=== PATIENT | male | born 1945 | race Caucasian/White ===

== ENCOUNTER 2021-03-12 09:52 | Inpatient (IN) | payer MEDICARE, OTHER ==
[2021-03-12] MEDS ORDERED: Acetaminophen 500 MG TAB PO PRN (12:40)
[2021-03-12] MEDS ORDERED: Ondansetron ODT 4 MG TAB PO PRN (12:42)
[2021-03-12] MEDS ORDERED: Dextrose 50% Abboject 50 ML SYRINGE SLOW IVP PRN (12:42)
[2021-03-12] MEDS ORDERED: Senokot S 8.6-50 MG TAB PO PRN (12:42)
[2021-03-12] MEDS ORDERED: HumaLOG 300 UNITS/3 ML VIAL SC PRN (12:42)
[2021-03-12] MEDS ORDERED: guaiFENesin/Codeine 200 mg/20 mg 10 ml Cup PO PRN (13:12)
[2021-03-12] MEDS ORDERED: Dextrose 5% in Water 1,000 ML IV PRN (13:30)
[2021-03-12] MEDS: HYDROcodone/Acetaminophen 10/325 mg Tablet PO PRN ×2 (14:00→20:22)
[2021-03-12 15:00] LABS: #Basophils 0.1 thou/uL (0.0-0.2); #Eosinphils 0.3 thou/uL (0.0-0.7); #Lymphocytes 2.7 thou/uL (1.20-3.40); #Monocytes 0.9 thou/uL (0.11-0.59); #Neutrophils 9.1 thou/uL (1.40-6.50); %Eosinophils 2.4 % (0.0-10.0); %Lymphocytes 20.8 % (21.0-51.0); %Monocytes 6.5 % (0.0-10.0); %Neutrophils 69.3 % (42.0-75.0); Hemoglobin 11.4 g/dL (14.0-18.0); Mean Corpuscular HGB CONC 33.2 g/dL (32.0-36.0); Mean Corpuscular Volume 90.2 fL (78.0-98.0); Mean Platelet Volume 6.6 fL (7.4-10.4); Platelet Count 577 thou/uL (130-400); RBC Distribution Width 12.3 % (11.5-14.5); Red Blood Cell (RBC) Count 3.79 mill/uL (4.70-6.10); White Blood Cell (WBC) Count 13.1 thou/uL (4.8-10.8)
[2021-03-12 15:16] LABS: ALT (SGPT) 33 U/L (8-55); AST (SGOT) 25 U/L (5-34); Albumin 3.4 g/dL (3.4-4.8); Alkaline Phosphatase 48 U/L (40-110); Anion Gap 13 mmol/L (10-20); BUN (Urea Nitrogen) 7 mg/dL (8.4-25.7); Bilirubin, Total 0.8 mg/dL (0.2-1.2); Calc. Creatinine Clearance 165 mL/min (70-130); Calcium 8.6 mg/dL (7.8-10.44); Carbon Dioxide 22 mmol/L (23-31); Chloride 108 mmol/L (98-107); Globulin 3.9 g/dL (2.4-3.5); Glucose 146 mg/dL (83-110); Potassium 3.2 mmol/L (3.5-5.1); Protein, Total 7.3 g/dL (5.8-8.1); Sodium 140 mmol/L (136-145)
[2021-03-12] MEDS ORDERED: Potassium Chloride 20 MEQ TAB PO SCH (16:15)
[2021-03-12 17:07] LABS: Bilirubin Negative (Negative); Blood, Urine Trace (Negative); Clarity Clear (Clear); Glucose, Urine (Dipstick) Negative (Negative); Ketone, Urine Negative (Negative); Leukocyte Negative (Negative); Nitrite Negative (Negative); Protein, Urine (Dipstick) Negative (Neg-Trace); Specific Gravity, Urine 1.025 (1.005-1.030); Urobilinogen 0.2 mg/dL (Less than 2)
[2021-03-12 17:10] LABS: Calcium Oxalate Crystals 1+ HPF (None Seen); Squamous Epithelial 0-3 HPF (0-3); WBC/HPF 0-3 HPF (0-3)
[2021-03-12] MEDS: Lantus 1000 UNITS/10 ML VIAL SC SCH (20:19)
[2021-03-12] MEDS: Enoxaparin Sodium 40 MG/0.4 ML SYRINGE SC SCH (20:19)
[2021-03-12] MEDS: Gabapentin 300 MG CAP PO SCH (20:20)
[2021-03-12] MEDS: Alogliptin 25 MG TAB PO SCH (20:21)
[2021-03-12] MEDS: Docusate 100 MG CAP PO SCH (20:22)
[2021-03-12] MEDS: Famotidine 20 MG TAB PO SCH (20:22)
[2021-03-12] MEDS: Amitriptyline HCl 10 MG TAB PO SCH (20:22)
[2021-03-12] MEDS: Aspirin 81 mg Enteric Coated Tablet PO SCH (20:22)
[2021-03-12] MEDS: Lisinopril 10 MG TAB PO SCH (20:22)
[2021-03-12] MEDS: Amoxicillin/Potassium Clav 875 MG TAB PO SCH (20:24)
[2021-03-13] MEDS: HYDROcodone/Acetaminophen 10/325 mg Tablet PO PRN ×3 (05:41→18:09)
[2021-03-13 06:35] LABS: Anion Gap 14 mmol/L (10-20); BUN (Urea Nitrogen) 7 mg/dL (8.4-25.7); Calc. Creatinine Clearance 170 mL/min (70-130); Calcium 8.6 mg/dL (7.8-10.44); Carbon Dioxide 21 mmol/L (23-31); Chloride 109 mmol/L (98-107); Glucose 139 mg/dL (83-110); Potassium 3.5 mmol/L (3.5-5.1); Sodium 140 mmol/L (136-145)
[2021-03-13 07:08] LABS: #Basophils 0.1 thou/uL (0.0-0.2); #Eosinphils 0.3 thou/uL (0.0-0.7); #Lymphocytes 2.6 thou/uL (1.20-3.40); #Monocytes 0.8 thou/uL (0.11-0.59); #Neutrophils 7.3 thou/uL (1.40-6.50); %Eosinophils 2.6 % (0.0-10.0); %Lymphocytes 23.8 % (21.0-51.0); %Monocytes 6.9 % (0.0-10.0); %Neutrophils 65.6 % (42.0-75.0); Mean Corpuscular HGB CONC 32.9 g/dL (32.0-36.0); Mean Corpuscular Hemoglobin 29.9 pg (27.0-31.0); Mean Corpuscular Volume 90.9 fL (78.0-98.0); Mean Platelet Volume 6.6 fL (7.4-10.4); Platelet Count 566 thou/uL (130-400); RBC Distribution Width 12.4 % (11.5-14.5); Red Blood Cell (RBC) Count 4.02 mill/uL (4.70-6.10); White Blood Cell (WBC) Count 11.1 thou/uL (4.8-10.8)
[2021-03-13] MEDS: Famotidine 20 MG TAB PO SCH ×2 (08:22→20:34)
[2021-03-13] MEDS: Amoxicillin/Potassium Clav 875 MG TAB PO SCH ×2 (08:22→20:34)
[2021-03-13] MEDS: Docusate 100 MG CAP PO SCH ×2 (08:22→20:36)
[2021-03-13] MEDS: Gabapentin 300 MG CAP PO SCH ×2 (08:22→20:34)
[2021-03-13] MEDS: HumaLOG 300 UNITS/3 ML VIAL SC PRN (12:00)
[2021-03-13 15:21] LABS: SARS-CoV-2 NAA Rapid Test Not Detected (NotDetected)
[2021-03-13] MEDS: Alogliptin 25 MG TAB PO SCH (20:34)
[2021-03-13] MEDS: Enoxaparin Sodium 40 MG/0.4 ML SYRINGE SC SCH (20:34)
[2021-03-13] MEDS: Amitriptyline HCl 10 MG TAB PO SCH (20:36)
[2021-03-13] MEDS: Aspirin 81 mg Enteric Coated Tablet PO SCH (20:36)
[2021-03-13] MEDS: Lisinopril 10 MG TAB PO SCH (20:36)
[2021-03-13] MEDS: Atorvastatin Calcium 10 MG TAB PO SCH (20:36)
[2021-03-13] MEDS: Lantus 1000 UNITS/10 ML VIAL SC SCH (20:37)
[2021-03-14] MEDS: HYDROcodone/Acetaminophen 10/325 mg Tablet PO PRN ×3 (07:36→20:28)
[2021-03-14] MEDS: Gabapentin 300 MG CAP PO SCH ×2 (09:14→20:30)
[2021-03-14] MEDS: Amoxicillin/Potassium Clav 875 MG TAB PO SCH ×2 (09:14→20:30)
[2021-03-14] MEDS: Famotidine 20 MG TAB PO SCH ×2 (09:15→20:30)
[2021-03-14] MEDS: Docusate 100 MG CAP PO SCH ×2 (09:16→20:30)
[2021-03-14] MEDS ORDERED: HYDROcodone/Acetaminophen 10/325 mg Tablet PO SCH (10:15)
[2021-03-14] MEDS: Atorvastatin Calcium 10 MG TAB PO SCH (20:28)
[2021-03-14] MEDS: Amitriptyline HCl 10 MG TAB PO SCH (20:28)
[2021-03-14] MEDS: Aspirin 81 mg Enteric Coated Tablet PO SCH (20:30)
[2021-03-14] MEDS: Enoxaparin Sodium 40 MG/0.4 ML SYRINGE SC SCH (20:30)
[2021-03-14] MEDS: Lisinopril 10 MG TAB PO SCH (20:30)
[2021-03-14] MEDS: Lantus 1000 UNITS/10 ML VIAL SC SCH (20:31)
[2021-03-14] MEDS: Alogliptin 25 MG TAB PO SCH (20:31)
[2021-03-15 07:18] LABS: #Basophils 0.1 thou/uL (0.0-0.2); #Eosinphils 0.4 thou/uL (0.0-0.7); #Lymphocytes 2.4 thou/uL (1.20-3.40); #Monocytes 0.7 thou/uL (0.11-0.59); #Neutrophils 5.4 thou/uL (1.40-6.50); %Basophils 1.2 % (0.0-1.0); %Monocytes 7.4 % (0.0-10.0); %Neutrophils 60.3 % (42.0-75.0); Hemoglobin 11.4 g/dL (14.0-18.0); Mean Corpuscular HGB CONC 32.7 g/dL (32.0-36.0); Mean Corpuscular Hemoglobin 29.8 pg (27.0-31.0); Mean Corpuscular Volume 91.1 fL (78.0-98.0); Mean Platelet Volume 6.6 fL (7.4-10.4); Platelet Count 562 thou/uL (130-400); RBC Distribution Width 12.4 % (11.5-14.5); Red Blood Cell (RBC) Count 3.82 mill/uL (4.70-6.10)
[2021-03-15 07:22] LABS: Anion Gap 15 mmol/L (10-20); BUN (Urea Nitrogen) 9 mg/dL (8.4-25.7); Calc. Creatinine Clearance 165 mL/min (70-130); Calcium 8.6 mg/dL (7.8-10.44); Carbon Dioxide 21 mmol/L (23-31); Chloride 107 mmol/L (98-107); Glucose 168 mg/dL (83-110); Potassium 3.5 mmol/L (3.5-5.1); Sodium 139 mmol/L (136-145)
[2021-03-15] MEDS: Amoxicillin/Potassium Clav 875 MG TAB PO SCH ×2 (08:02→20:51)
[2021-03-15] MEDS: Docusate 100 MG CAP PO SCH ×2 (08:02→20:53)
[2021-03-15] MEDS: Famotidine 20 MG TAB PO SCH ×2 (08:02→20:53)
[2021-03-15] MEDS: Gabapentin 300 MG CAP PO SCH ×2 (08:03→20:51)
[2021-03-15] MEDS: HYDROcodone/Acetaminophen 10/325 mg Tablet PO PRN ×3 (08:04→20:52)
[2021-03-15] MEDS: HumaLOG 300 UNITS/3 ML VIAL SC PRN ×2 (12:36→18:02)
[2021-03-15] MEDS ORDERED: Ondansetron ODT 4 MG TAB SL PRN (13:15)
[2021-03-15] MEDS: Alogliptin 25 MG TAB PO SCH (20:52)
[2021-03-15] MEDS: Amitriptyline HCl 10 MG TAB PO SCH (20:52)
[2021-03-15] MEDS: Atorvastatin Calcium 10 MG TAB PO SCH (20:52)
[2021-03-15] MEDS: Lisinopril 10 MG TAB PO SCH (20:53)
[2021-03-15] MEDS: Lantus 1000 UNITS/10 ML VIAL SC SCH (20:53)
[2021-03-15] MEDS: Aspirin 81 mg Enteric Coated Tablet PO SCH (20:53)
[2021-03-15] MEDS: Enoxaparin Sodium 40 MG/0.4 ML SYRINGE SC SCH (20:53)
[2021-03-16 06:29] VITALS: BMI 36.2
[2021-03-16 06:45] LABS: #Basophils 0.1 thou/uL (0.0-0.2); #Eosinphils 0.4 thou/uL (0.0-0.7); #Lymphocytes 2.9 thou/uL (1.20-3.40); #Monocytes 0.8 thou/uL (0.11-0.59); #Neutrophils 7.1 thou/uL (1.40-6.50); %Eosinophils 3.6 % (0.0-10.0); %Lymphocytes 25.7 % (21.0-51.0); %Monocytes 7.4 % (0.0-10.0); %Neutrophils 62.3 % (42.0-75.0); Hemoglobin 11.6 g/dL (14.0-18.0); Mean Corpuscular HGB CONC 32.7 g/dL (32.0-36.0); Mean Corpuscular Hemoglobin 29.4 pg (27.0-31.0); Mean Corpuscular Volume 89.8 fL (78.0-98.0); Mean Platelet Volume 6.9 fL (7.4-10.4); Platelet Count 569 thou/uL (130-400); RBC Distribution Width 12.6 % (11.5-14.5); Red Blood Cell (RBC) Count 3.95 mill/uL (4.70-6.10); White Blood Cell (WBC) Count 11.4 thou/uL (4.8-10.8)
[2021-03-16 06:55] LABS: Anion Gap 13 mmol/L (10-20); BUN (Urea Nitrogen) 10 mg/dL (8.4-25.7); Calc. Creatinine Clearance 167 mL/min (70-130); Calcium 8.7 mg/dL (7.8-10.44); Carbon Dioxide 22 mmol/L (23-31); Chloride 109 mmol/L (98-107); Glucose 166 mg/dL (83-110); Potassium 3.5 mmol/L (3.5-5.1); Sodium 140 mmol/L (136-145)
[2021-03-16 07:47] VITALS: BP 131/61; TEMP 98.7
== END 2021-03-16 12:39 | disposition short-term general hospital (02) | DRG 948 ==
LOC: NAV ACUTE 09:52
PROVIDERS: ADMIT Family Medicine; ATTEND Family Medicine
DX: R53.81 Other malaise (principal); E11.42 Type 2 diabetes mellitus with diabetic polyneuropathy; I10 Essential (primary) hypertension; E78.5 Hyperlipidemia, unspecified; F32.9 Major depressive disorder, single episode, unspecified; M19.90 Unspecified osteoarthritis, unspecified site; E87.6 Hypokalemia; G47.33 Obstructive sleep apnea (adult) (pediatric); Z20.822 Contact with and (suspected) exposure to COVID-19; Z89.421 Acquired absence of other right toe(s); Z89.411 Acquired absence of right great toe; Z90.49 Acquired absence of other specified parts of digestive tract
CPT/HCPCS: 36416; 80048; 80053; 81001; 82553; 84484; 85025; 87040; 87086; 87804; 97602; 36415-59; J1650; J1815; U0002

== ENCOUNTER 2021-03-16 08:13 | Emergency (ER) | payer MEDICARE, OTHER ==
[2021-03-16] MEDS ORDERED: Aspirin Chewable 81 MG TAB ONE (08:35)
[2021-03-16] MEDS ORDERED: HYDROcodone/Acetaminophen 10/325 mg Tablet ONE (08:35)
[2021-03-16 08:39] LABS: #Basophils 0.1 thou/uL (0.0-0.2); #Eosinphils 0.4 thou/uL (0.0-0.7); #Lymphocytes 2.9 thou/uL (1.20-3.40); #Monocytes 0.8 thou/uL (0.11-0.59); #Neutrophils 8.1 thou/uL (1.40-6.50); %Lymphocytes 23.6 % (21.0-51.0); %Monocytes 6.5 % (0.0-10.0); %Neutrophils 65.9 % (42.0-75.0); Mean Corpuscular HGB CONC 32.2 g/dL (32.0-36.0); Mean Corpuscular Hemoglobin 29.1 pg (27.0-31.0); Mean Corpuscular Volume 90.5 fL (78.0-98.0); Mean Platelet Volume 6.8 fL (7.4-10.4); Platelet Count 589 thou/uL (130-400); RBC Distribution Width 12.8 % (11.5-14.5); Red Blood Cell (RBC) Count 4.12 mill/uL (4.70-6.10); White Blood Cell (WBC) Count 12.3 thou/uL (4.8-10.8)
[2021-03-16 08:54] LABS: ALT (SGPT) 30 U/L (8-55); AST (SGOT) 25 U/L (5-34); Albumin 3.6 g/dL (3.4-4.8); Alkaline Phosphatase 46 U/L (40-110); Anion Gap 13 mmol/L (10-20); BUN (Urea Nitrogen) 10 mg/dL (8.4-25.7); Bilirubin, Total 0.7 mg/dL (0.2-1.2); Calc. Creatinine Clearance 0 mL/min (70-130); Calcium 8.9 mg/dL (7.8-10.44); Carbon Dioxide 24 mmol/L (23-31); Chloride 106 mmol/L (98-107); Globulin 4.3 g/dL (2.4-3.5); Glucose 178 mg/dL (83-110); Potassium 3.6 mmol/L (3.5-5.1); Protein, Total 7.9 g/dL (5.8-8.1); Sodium 139 mmol/L (136-145)
[2021-03-16] MEDS ORDERED: Iopamidol 370 76% 100 ML VIAL ONE (09:00)
== END 2021-03-16 11:53 | disposition short-term general hospital (02) ==
LOC: NAV ERS 08:13
DX: I21.4 Non-ST elevation (NSTEMI) myocardial infarction (principal); R94.31 Abnormal electrocardiogram [ECG] [EKG]; I10 Essential (primary) hypertension; E11.40 Type 2 diabetes mellitus with diabetic neuropathy, unspecified; Z79.899 Other long term (current) drug therapy
CPT/HCPCS: 36416; 71045; 71275; 85379; 93005; 94760; Q9967

== ENCOUNTER 2021-03-19 21:23 | Inpatient (IN) | payer MEDICARE, OTHER ==
[2021-03-19] MEDS ORDERED: Acetaminophen 500 MG TAB PO PRN (22:16)
[2021-03-19] MEDS ORDERED: HYDROcodone/Acetaminophen 5/325 mg Tablet PO PRN (22:20)
[2021-03-19] MEDS ORDERED: Ondansetron ODT 4 MG TAB PO PRN (22:20)
[2021-03-19] MEDS ORDERED: Lisinopril 10 MG TAB PO SCH (22:30)
[2021-03-19] MEDS ORDERED: Alogliptin 25 MG TAB PO SCH (22:30)
[2021-03-19] MEDS ORDERED: Amoxicillin/Potassium Clav 875 MG TAB PO SCH (22:30)
[2021-03-19] MEDS ORDERED: Atorvastatin Calcium 10 MG TAB PO SCH (22:30)
[2021-03-19] MEDS ORDERED: Amitriptyline HCl 10 MG TAB PO SCH (22:30)
[2021-03-19] MEDS ORDERED: Docusate 100 MG CAP PO SCH (22:30)
[2021-03-19] MEDS ORDERED: Gabapentin 400 MG CAP PO SCH (22:30)
[2021-03-19] MEDS ORDERED: Lantus 1000 UNITS/10 ML VIAL SC SCH (22:30)
[2021-03-20] MEDS ORDERED: Dextrose 50% Abboject 50 ML SYRINGE SLOW IVP PRN (07:41)
[2021-03-20] MEDS ORDERED: HumaLOG 300 UNITS/3 ML VIAL SC PRN (07:45)
[2021-03-20] MEDS ORDERED: Dextrose 5% in Water 1,000 ML IV PRN (07:45)
[2021-03-20] MEDS: Carvedilol 3.125 MG TAB PO SCH ×2 (07:59→17:08)
[2021-03-20] MEDS: Furosemide 20 MG TAB PO SCH (08:00)
[2021-03-20] MEDS: Gabapentin 300 MG CAP PO SCH (08:00)
[2021-03-20] MEDS: Docusate 100 MG CAP PO SCH ×2 (08:00→21:37)
[2021-03-20] MEDS: Amoxicillin/Potassium Clav 875 MG TAB PO SCH ×2 (08:00→21:37)
[2021-03-20] MEDS: Aspirin 81 mg Enteric Coated Tablet PO SCH (08:00)
[2021-03-20] MEDS: Potassium Chloride 10 MEQ TAB PO SCH (08:01)
[2021-03-20] MEDS ORDERED: Promethazine HCl 25 MG SUPP PR PRN (08:38)
[2021-03-20] MEDS ORDERED: Sodium Chloride 0.65% Nasal 44 ML BOT EA NARE PRN (08:38)
[2021-03-20] MEDS ORDERED: Ondansetron PF 4 MG/2 ML Vial IVP PRN (08:38)
[2021-03-20] MEDS ORDERED: Cepastat Lozenges 1 LOZ PO PRN (08:38)
[2021-03-20] MEDS ORDERED: Bisacodyl 5 MG TAB PO PRN (08:38)
[2021-03-20] MEDS ORDERED: Artificial Tear Sol 15 ML BOT EA EYE PRN (08:38)
[2021-03-20] MEDS ORDERED: Benzonatate 100 MG CAP PO PRN (08:38)
[2021-03-20] MEDS ORDERED: Guaifenesin DM 100-10/5 ML UDCUP PO PRN (08:38)
[2021-03-20] MEDS ORDERED: Senokot S 8.6-50 MG TAB PO PRN (08:38)
[2021-03-20] MEDS ORDERED: hydrOXYzine 25 MG TAB PO PRN (08:38)
[2021-03-20] MEDS ORDERED: Bisacodyl 10 MG SUPP PR PRN (08:38)
[2021-03-20] MEDS ORDERED: Loperamide HCl 2 MG CAP PO PRN ×2 (08:38)
[2021-03-20] MEDS: Enoxaparin Sodium 40 MG/0.4 ML SYRINGE SC SCH (09:48)
[2021-03-20] MEDS: HYDROcodone/Acetaminophen 10/325 mg Tablet PO PRN ×3 (10:06→22:04)
[2021-03-20] MEDS: HumaLOG 300 UNITS/3 ML VIAL SC PRN (13:00)
[2021-03-20] MEDS: Gabapentin 400 MG CAP PO SCH (21:36)
[2021-03-20] MEDS: Atorvastatin Calcium 10 MG TAB PO SCH (21:37)
[2021-03-20] MEDS: Alogliptin 25 MG TAB PO SCH (21:37)
[2021-03-20] MEDS: Amitriptyline HCl 10 MG TAB PO SCH (21:37)
[2021-03-20] MEDS: Lantus 1000 UNITS/10 ML VIAL SC SCH (21:39)
[2021-03-20] MEDS: Lisinopril 10 MG TAB PO SCH (21:42)
[2021-03-21 07:26] LABS: #Basophils 0.1 thou/uL (0.0-0.2); #Eosinphils 0.4 thou/uL (0.0-0.7); #Lymphocytes 2.9 thou/uL (1.20-3.40); #Monocytes 0.6 thou/uL (0.11-0.59); #Neutrophils 6.2 thou/uL (1.40-6.50); %Basophils 1.4 % (0.0-1.0); %Eosinophils 4.2 % (0.0-10.0); %Lymphocytes 28.1 % (21.0-51.0); %Monocytes 6.2 % (0.0-10.0); %Neutrophils 60.2 % (42.0-75.0); Hemoglobin 12.2 g/dL (14.0-18.0); Mean Corpuscular HGB CONC 31.4 g/dL (32.0-36.0); Mean Corpuscular Hemoglobin 28.7 pg (27.0-31.0); Mean Corpuscular Volume 91.4 fL (78.0-98.0); Mean Platelet Volume 7.2 fL (7.4-10.4); Platelet Count 506 thou/uL (130-400); RBC Distribution Width 13.3 % (11.5-14.5); Red Blood Cell (RBC) Count 4.25 mill/uL (4.70-6.10); White Blood Cell (WBC) Count 10.3 thou/uL (4.8-10.8)
[2021-03-21 07:45] LABS: ALT (SGPT) 24 U/L (8-55); AST (SGOT) 17 U/L (5-34); Albumin 3.6 g/dL (3.4-4.8); Alkaline Phosphatase 49 U/L (40-110); Anion Gap 13 mmol/L (10-20); BUN (Urea Nitrogen) 10 mg/dL (8.4-25.7); Bilirubin, Total 0.9 mg/dL (0.2-1.2); Calc. Creatinine Clearance 157 mL/min (70-130); Calcium 8.9 mg/dL (7.8-10.44); Carbon Dioxide 24 mmol/L (23-31); Chloride 106 mmol/L (98-107); Globulin 3.9 g/dL (2.4-3.5); Glucose 156 mg/dL (83-110); Potassium 3.9 mmol/L (3.5-5.1); Protein, Total 7.5 g/dL (5.8-8.1); Sodium 139 mmol/L (136-145)
[2021-03-21] MEDS: Furosemide 20 MG TAB PO SCH (09:14)
[2021-03-21] MEDS: Potassium Chloride 10 MEQ TAB PO SCH (09:14)
[2021-03-21] MEDS: Docusate 100 MG CAP PO SCH ×2 (09:14→20:50)
[2021-03-21] MEDS: Amoxicillin/Potassium Clav 875 MG TAB PO SCH ×2 (09:14→20:50)
[2021-03-21] MEDS: Carvedilol 3.125 MG TAB PO SCH ×2 (09:15→16:47)
[2021-03-21] MEDS: Enoxaparin Sodium 40 MG/0.4 ML SYRINGE SC SCH (09:15)
[2021-03-21] MEDS: Aspirin 81 mg Enteric Coated Tablet PO SCH (09:15)
[2021-03-21] MEDS: Gabapentin 300 MG CAP PO SCH (09:23)
[2021-03-21] MEDS: HYDROcodone/Acetaminophen 10/325 mg Tablet PO PRN ×3 (09:24→23:03)
[2021-03-21] MEDS ORDERED: TRIAMCINOLONE FS SCH (19:15)
[2021-03-21] MEDS ORDERED: LIDOCAINE FS SCH (19:15)
[2021-03-21] MEDS: Lantus 1000 UNITS/10 ML VIAL SC SCH (20:49)
[2021-03-21] MEDS: Gabapentin 400 MG CAP PO SCH (20:49)
[2021-03-21] MEDS: Alogliptin 25 MG TAB PO SCH (20:50)
[2021-03-21] MEDS: Lisinopril 10 MG TAB PO SCH (20:50)
[2021-03-21] MEDS: Amitriptyline HCl 10 MG TAB PO SCH (20:50)
[2021-03-21] MEDS: Atorvastatin Calcium 10 MG TAB PO SCH (20:50)
[2021-03-22] MEDS: HumaLOG 300 UNITS/3 ML VIAL SC PRN ×2 (05:34→12:32)
[2021-03-22] MEDS: Enoxaparin Sodium 40 MG/0.4 ML SYRINGE SC SCH (08:24)
[2021-03-22] MEDS: Docusate 100 MG CAP PO SCH ×2 (08:25→20:44)
[2021-03-22] MEDS: Aspirin 81 mg Enteric Coated Tablet PO SCH (08:25)
[2021-03-22] MEDS: Potassium Chloride 10 MEQ TAB PO SCH (08:25)
[2021-03-22] MEDS: Amoxicillin/Potassium Clav 875 MG TAB PO SCH ×2 (08:26→20:43)
[2021-03-22] MEDS: Gabapentin 300 MG CAP PO SCH (08:27)
[2021-03-22] MEDS: Furosemide 20 MG TAB PO SCH (08:28)
[2021-03-22] MEDS: Carvedilol 3.125 MG TAB PO SCH ×2 (08:28→17:32)
[2021-03-22] MEDS: HYDROcodone/Acetaminophen 10/325 mg Tablet PO PRN ×2 (08:29→17:31)
[2021-03-22] MEDS ORDERED: FLU VACC QS2021-22(65YR UP)/PF 240 MCG/0.7 ML SYRINGE IM ONE (09:00)
[2021-03-22] MEDS: Atorvastatin Calcium 10 MG TAB PO SCH (20:44)
[2021-03-22] MEDS: Lisinopril 10 MG TAB PO SCH (20:44)
[2021-03-22] MEDS: Alogliptin 25 MG TAB PO SCH (20:44)
[2021-03-22] MEDS: Gabapentin 400 MG CAP PO SCH (20:44)
[2021-03-22] MEDS: Amitriptyline HCl 10 MG TAB PO SCH (20:44)
[2021-03-22] MEDS: Lantus 1000 UNITS/10 ML VIAL SC SCH (20:45)
[2021-03-23] MEDS: HYDROcodone/Acetaminophen 10/325 mg Tablet PO PRN ×4 (01:17→18:13)
[2021-03-23] MEDS: Aspirin 81 mg Enteric Coated Tablet PO SCH (08:53)
[2021-03-23] MEDS: Enoxaparin Sodium 40 MG/0.4 ML SYRINGE SC SCH (08:53)
[2021-03-23] MEDS: Docusate 100 MG CAP PO SCH ×2 (08:53→20:59)
[2021-03-23] MEDS: Amoxicillin/Potassium Clav 875 MG TAB PO SCH (08:53)
[2021-03-23] MEDS: Potassium Chloride 10 MEQ TAB PO SCH (08:53)
[2021-03-23] MEDS: Furosemide 20 MG TAB PO SCH (08:54)
[2021-03-23] MEDS: Gabapentin 300 MG CAP PO SCH (08:54)
[2021-03-23] MEDS: Carvedilol 3.125 MG TAB PO SCH ×2 (08:54→17:07)
[2021-03-23] MEDS ORDERED: HYDROcodone/Acetaminophen 5/325 mg Tablet PO PRN (12:16)
[2021-03-23] MEDS: HumaLOG 300 UNITS/3 ML VIAL SC PRN (17:08)
[2021-03-23] MEDS: Amitriptyline HCl 10 MG TAB PO SCH (20:57)
[2021-03-23] MEDS: Lantus 1000 UNITS/10 ML VIAL SC SCH (20:57)
[2021-03-23] MEDS: Gabapentin 400 MG CAP PO SCH (20:58)
[2021-03-23] MEDS: Atorvastatin Calcium 10 MG TAB PO SCH (20:58)
[2021-03-23] MEDS: Lisinopril 10 MG TAB PO SCH (20:58)
[2021-03-23] MEDS: Alogliptin 25 MG TAB PO SCH (20:58)
[2021-03-24] MEDS: HYDROcodone/Acetaminophen 10/325 mg Tablet PO PRN ×3 (05:39→20:27)
[2021-03-24] MEDS: Gabapentin 300 MG CAP PO SCH (09:17)
[2021-03-24] MEDS: Enoxaparin Sodium 40 MG/0.4 ML SYRINGE SC SCH (09:17)
[2021-03-24] MEDS: Docusate 100 MG CAP PO SCH ×2 (09:17→20:26)
[2021-03-24] MEDS: Carvedilol 3.125 MG TAB PO SCH ×2 (09:21→17:22)
[2021-03-24] MEDS: Aspirin 81 mg Enteric Coated Tablet PO SCH (09:21)
[2021-03-24] MEDS: Furosemide 20 MG TAB PO SCH (09:21)
[2021-03-24] MEDS: Potassium Chloride 10 MEQ TAB PO SCH (09:21)
[2021-03-24] MEDS: HumaLOG 300 UNITS/3 ML VIAL SC PRN (17:22)
[2021-03-24] MEDS: Sulfameth/Trimethoprim DS 800-160mg TAB PO SCH (20:26)
[2021-03-24] MEDS: Lantus 1000 UNITS/10 ML VIAL SC SCH (20:26)
[2021-03-24] MEDS: Atorvastatin Calcium 10 MG TAB PO SCH (20:28)
[2021-03-24] MEDS: Gabapentin 400 MG CAP PO SCH (20:28)
[2021-03-24] MEDS: Lisinopril 10 MG TAB PO SCH (20:28)
[2021-03-24] MEDS: Amitriptyline HCl 10 MG TAB PO SCH (20:28)
[2021-03-24] MEDS: Alogliptin 25 MG TAB PO SCH (20:28)
[2021-03-25 06:58] LABS: Anion Gap 13 mmol/L (10-20); BUN (Urea Nitrogen) 8 mg/dL (8.4-25.7); Calc. Creatinine Clearance 149 mL/min (70-130); Calcium 8.9 mg/dL (7.8-10.44); Carbon Dioxide 24 mmol/L (23-31); Chloride 104 mmol/L (98-107); Glucose 125 mg/dL (83-110); Potassium 3.9 mmol/L (3.5-5.1); Sodium 137 mmol/L (136-145)
[2021-03-25] MEDS: HYDROcodone/Acetaminophen 10/325 mg Tablet PO PRN ×2 (07:58→15:15)
[2021-03-25] MEDS: Gabapentin 300 MG CAP PO SCH (07:59)
[2021-03-25] MEDS: Potassium Chloride 10 MEQ TAB PO SCH (08:00)
[2021-03-25] MEDS: Docusate 100 MG CAP PO SCH ×2 (08:00→20:42)
[2021-03-25] MEDS: Carvedilol 3.125 MG TAB PO SCH ×2 (08:00→17:25)
[2021-03-25] MEDS: Furosemide 20 MG TAB PO SCH (08:00)
[2021-03-25] MEDS: Aspirin 81 mg Enteric Coated Tablet PO SCH (08:00)
[2021-03-25] MEDS: Sulfameth/Trimethoprim DS 800-160mg TAB PO SCH ×2 (08:00→20:39)
[2021-03-25] MEDS: Enoxaparin Sodium 40 MG/0.4 ML SYRINGE SC SCH (12:53)
[2021-03-25] MEDS: HumaLOG 300 UNITS/3 ML VIAL SC PRN (17:26)
[2021-03-25] MEDS: Alogliptin 25 MG TAB PO SCH (20:39)
[2021-03-25] MEDS: Gabapentin 400 MG CAP PO SCH (20:41)
[2021-03-25] MEDS: Atorvastatin Calcium 10 MG TAB PO SCH (20:41)
[2021-03-25] MEDS: Amitriptyline HCl 10 MG TAB PO SCH (20:42)
[2021-03-25] MEDS: Lantus 1000 UNITS/10 ML VIAL SC SCH (20:49)
[2021-03-25] MEDS: Lisinopril 10 MG TAB PO SCH (20:54)
[2021-03-26] MEDS: HumaLOG 300 UNITS/3 ML VIAL SC PRN ×3 (05:35→16:49)
[2021-03-26 07:21] LABS: #Basophils 0.1 thou/uL (0.0-0.2); #Eosinphils 0.1 thou/uL (0.0-0.7); #Monocytes 0.6 thou/uL (0.11-0.59); #Neutrophils 8.7 thou/uL (1.40-6.50); %Basophils 0.9 % (0.0-1.0); %Eosinophils 0.8 % (0.0-10.0); %Lymphocytes 17.7 % (21.0-51.0); %Neutrophils 75.7 % (42.0-75.0); Anion Gap 13 mmol/L (10-20); BUN (Urea Nitrogen) 10 mg/dL (8.4-25.7); Calc. Creatinine Clearance 138 mL/min (70-130); Calcium 9.1 mg/dL (7.8-10.44); Carbon Dioxide 22 mmol/L (23-31); Chloride 105 mmol/L (98-107); Glucose 177 mg/dL (83-110); Hemoglobin 12.2 g/dL (14.0-18.0); Mean Corpuscular HGB CONC 32.7 g/dL (32.0-36.0); Mean Corpuscular Hemoglobin 29.4 pg (27.0-31.0); Mean Corpuscular Volume 89.9 fL (78.0-98.0); Mean Platelet Volume 7.7 fL (7.4-10.4); Platelet Count 440 thou/uL (130-400); Potassium 4.4 mmol/L (3.5-5.1); RBC Distribution Width 13.2 % (11.5-14.5); Red Blood Cell (RBC) Count 4.17 mill/uL (4.70-6.10); Sodium 136 mmol/L (136-145); White Blood Cell (WBC) Count 11.5 thou/uL (4.8-10.8)
[2021-03-26] MEDS: Gabapentin 300 MG CAP PO SCH (08:26)
[2021-03-26] MEDS: Sulfameth/Trimethoprim DS 800-160mg TAB PO SCH ×2 (08:26→20:53)
[2021-03-26] MEDS: Docusate 100 MG CAP PO SCH ×2 (08:26→20:53)
[2021-03-26] MEDS: Carvedilol 3.125 MG TAB PO SCH ×2 (08:27→16:49)
[2021-03-26] MEDS: Furosemide 20 MG TAB PO SCH (08:27)
[2021-03-26] MEDS: Aspirin 81 mg Enteric Coated Tablet PO SCH (08:27)
[2021-03-26] MEDS: Potassium Chloride 10 MEQ TAB PO SCH (08:27)
[2021-03-26] MEDS: Enoxaparin Sodium 40 MG/0.4 ML SYRINGE SC SCH (08:28)
[2021-03-26] MEDS: HYDROcodone/Acetaminophen 10/325 mg Tablet PO PRN ×2 (08:35→17:53)
[2021-03-26] MEDS: Calcium Carbonate 500 MG ChewTAB PO PRN (11:00)
[2021-03-26] MEDS: Lisinopril 10 MG TAB PO SCH (20:53)
[2021-03-26] MEDS: Alogliptin 25 MG TAB PO SCH (20:53)
[2021-03-26] MEDS: Atorvastatin Calcium 10 MG TAB PO SCH (20:53)
[2021-03-26] MEDS: Gabapentin 400 MG CAP PO SCH (20:55)
[2021-03-26] MEDS: Amitriptyline HCl 10 MG TAB PO SCH (20:55)
[2021-03-26] MEDS: Lantus 1000 UNITS/10 ML VIAL SC SCH (20:59)
[2021-03-27] MEDS: HumaLOG 300 UNITS/3 ML VIAL SC PRN ×2 (05:40→17:10)
[2021-03-27] MEDS: Potassium Chloride 10 MEQ TAB PO SCH (08:13)
[2021-03-27] MEDS: Docusate 100 MG CAP PO SCH ×2 (08:13→21:16)
[2021-03-27] MEDS: Sulfameth/Trimethoprim DS 800-160mg TAB PO SCH ×2 (08:14→21:17)
[2021-03-27] MEDS: Furosemide 20 MG TAB PO SCH (08:14)
[2021-03-27] MEDS: Gabapentin 300 MG CAP PO SCH (08:14)
[2021-03-27] MEDS: Aspirin 81 mg Enteric Coated Tablet PO SCH (08:14)
[2021-03-27] MEDS: Carvedilol 3.125 MG TAB PO SCH ×2 (08:15→16:39)
[2021-03-27] MEDS: Enoxaparin Sodium 40 MG/0.4 ML SYRINGE SC SCH (08:15)
[2021-03-27] MEDS: HYDROcodone/Acetaminophen 10/325 mg Tablet PO PRN ×2 (08:15→16:39)
[2021-03-27 20:33] LABS: SARS-CoV-2 PCR by NAA Not Detected (NotDetected)
[2021-03-27] MEDS: Lantus 1000 UNITS/10 ML VIAL SC SCH (21:13)
[2021-03-27] MEDS: Amitriptyline HCl 10 MG TAB PO SCH (21:15)
[2021-03-27] MEDS: Alogliptin 25 MG TAB PO SCH (21:16)
[2021-03-27] MEDS: Atorvastatin Calcium 10 MG TAB PO SCH (21:17)
[2021-03-27] MEDS: Gabapentin 400 MG CAP PO SCH (21:17)
[2021-03-27] MEDS: Lisinopril 10 MG TAB PO SCH (21:28)
[2021-03-28] MEDS: HYDROcodone/Acetaminophen 10/325 mg Tablet PO PRN ×3 (07:33→21:21)
[2021-03-28] MEDS: Sulfameth/Trimethoprim DS 800-160mg TAB PO SCH ×2 (07:34→21:12)
[2021-03-28] MEDS: Docusate 100 MG CAP PO SCH ×2 (07:35→21:12)
[2021-03-28] MEDS: Potassium Chloride 10 MEQ TAB PO SCH (07:35)
[2021-03-28] MEDS: Gabapentin 300 MG CAP PO SCH (07:35)
[2021-03-28] MEDS: Aspirin 81 mg Enteric Coated Tablet PO SCH (07:35)
[2021-03-28] MEDS: Furosemide 20 MG TAB PO SCH (07:36)
[2021-03-28] MEDS: Enoxaparin Sodium 40 MG/0.4 ML SYRINGE SC SCH (07:36)
[2021-03-28] MEDS: Carvedilol 3.125 MG TAB PO SCH ×2 (07:36→17:50)
[2021-03-28] MEDS: HumaLOG 300 UNITS/3 ML VIAL SC PRN (11:50)
[2021-03-28 12:49] LABS: #Basophils 0.2 thou/uL (0.0-0.2); #Eosinphils 0.1 thou/uL (0.0-0.7); #Lymphocytes 2.3 thou/uL (1.20-3.40); #Neutrophils 11.1 thou/uL (1.40-6.50); %Basophils 1.4 % (0.0-1.0); %Eosinophils 0.8 % (0.0-10.0); %Lymphocytes 15.5 % (21.0-51.0); %Monocytes 6.8 % (0.0-10.0); %Neutrophils 75.4 % (42.0-75.0); Hemoglobin 13.1 g/dL (14.0-18.0); Mean Corpuscular HGB CONC 31.5 g/dL (32.0-36.0); Mean Corpuscular Hemoglobin 28.7 pg (27.0-31.0); Mean Corpuscular Volume 91.2 fL (78.0-98.0); Mean Platelet Volume 7.5 fL (7.4-10.4); Platelet Count 460 thou/uL (130-400); RBC Distribution Width 13.6 % (11.5-14.5); Red Blood Cell (RBC) Count 4.56 mill/uL (4.70-6.10); White Blood Cell (WBC) Count 14.7 thou/uL (4.8-10.8)
[2021-03-28 12:58] LABS: Anion Gap 15 mmol/L (10-20); BUN (Urea Nitrogen) 18 mg/dL (8.4-25.7); Calc. Creatinine Clearance 132 mL/min (70-130); Calcium 9.3 mg/dL (7.8-10.44); Carbon Dioxide 22 mmol/L (23-31); Chloride 102 mmol/L (98-107); Glucose 143 mg/dL (83-110); Potassium 4.2 mmol/L (3.5-5.1); Sodium 135 mmol/L (136-145)
[2021-03-28] MEDS ORDERED: Lantus 1000 UNITS/10 ML VIAL SC SCH (21:00)
[2021-03-28] MEDS: Lisinopril 10 MG TAB PO SCH (21:11)
[2021-03-28] MEDS: Gabapentin 400 MG CAP PO SCH (21:11)
[2021-03-28] MEDS: Atorvastatin Calcium 10 MG TAB PO SCH (21:11)
[2021-03-28] MEDS: Amitriptyline HCl 10 MG TAB PO SCH (21:12)
[2021-03-28] MEDS: Alogliptin 25 MG TAB PO SCH (21:12)
[2021-03-29 06:42] LABS: #Basophils 0.2 thou/uL (0.0-0.2); #Eosinphils 0.1 thou/uL (0.0-0.7); #Lymphocytes 2.6 thou/uL (1.20-3.40); #Monocytes 0.9 thou/uL (0.11-0.59); #Neutrophils 8.5 thou/uL (1.40-6.50); %Basophils 1.3 % (0.0-1.0); %Lymphocytes 21.3 % (21.0-51.0); %Monocytes 7.5 % (0.0-10.0); Hemoglobin 12.4 g/dL (14.0-18.0); Mean Corpuscular HGB CONC 32.8 g/dL (32.0-36.0); Mean Corpuscular Hemoglobin 29.6 pg (27.0-31.0); Mean Corpuscular Volume 90.2 fL (78.0-98.0); Mean Platelet Volume 7.9 fL (7.4-10.4); Platelet Count 434 thou/uL (130-400); RBC Distribution Width 13.6 % (11.5-14.5); Red Blood Cell (RBC) Count 4.21 mill/uL (4.70-6.10); White Blood Cell (WBC) Count 12.3 thou/uL (4.8-10.8)
[2021-03-29 06:53] LABS: Anion Gap 13 mmol/L (10-20); BUN (Urea Nitrogen) 15 mg/dL (8.4-25.7); Calc. Creatinine Clearance 151 mL/min (70-130); Calcium 8.7 mg/dL (7.8-10.44); Carbon Dioxide 22 mmol/L (23-31); Chloride 103 mmol/L (98-107); Glucose 143 mg/dL (83-110); Potassium 4.2 mmol/L (3.5-5.1); Sodium 134 mmol/L (136-145)
[2021-03-29] MEDS: HYDROcodone/Acetaminophen 10/325 mg Tablet PO PRN ×3 (09:00→22:58)
[2021-03-29] MEDS: Enoxaparin Sodium 40 MG/0.4 ML SYRINGE SC SCH (09:01)
[2021-03-29] MEDS: Docusate 100 MG CAP PO SCH ×2 (09:02→21:05)
[2021-03-29] MEDS: Gabapentin 300 MG CAP PO SCH (09:02)
[2021-03-29] MEDS: Furosemide 20 MG TAB PO SCH (09:03)
[2021-03-29] MEDS: Carvedilol 3.125 MG TAB PO SCH ×2 (09:03→17:09)
[2021-03-29] MEDS: Sulfameth/Trimethoprim DS 800-160mg TAB PO SCH ×2 (09:03→21:07)
[2021-03-29] MEDS: Aspirin 81 mg Enteric Coated Tablet PO SCH (09:03)
[2021-03-29] MEDS: Potassium Chloride 10 MEQ TAB PO SCH (09:03)
[2021-03-29] MEDS: HumaLOG 300 UNITS/3 ML VIAL SC PRN (12:42)
[2021-03-29] MEDS: Lantus 1000 UNITS/10 ML VIAL SC SCH (21:04)
[2021-03-29] MEDS: Gabapentin 400 MG CAP PO SCH (21:06)
[2021-03-29] MEDS: Atorvastatin Calcium 10 MG TAB PO SCH (21:07)
[2021-03-29] MEDS: Amitriptyline HCl 10 MG TAB PO SCH (21:07)
[2021-03-29] MEDS: Lisinopril 10 MG TAB PO SCH (21:07)
[2021-03-29] MEDS: Alogliptin 25 MG TAB PO SCH (21:07)
[2021-03-30 07:06] LABS: #Basophils 0.2 thou/uL (0.0-0.2); #Eosinphils 0.1 thou/uL (0.0-0.7); #Lymphocytes 3.2 thou/uL (1.20-3.40); #Monocytes 0.9 thou/uL (0.11-0.59); #Neutrophils 8.3 thou/uL (1.40-6.50); %Basophils 1.8 % (0.0-1.0); %Eosinophils 0.9 % (0.0-10.0); %Lymphocytes 25.2 % (21.0-51.0); %Monocytes 7.2 % (0.0-10.0); %Neutrophils 64.8 % (42.0-75.0); Mean Corpuscular HGB CONC 32.1 g/dL (32.0-36.0); Mean Corpuscular Hemoglobin 29.4 pg (27.0-31.0); Mean Corpuscular Volume 91.4 fL (78.0-98.0); Mean Platelet Volume 7.8 fL (7.4-10.4); Platelet Count 424 thou/uL (130-400); RBC Distribution Width 13.7 % (11.5-14.5); Red Blood Cell (RBC) Count 4.41 mill/uL (4.70-6.10); White Blood Cell (WBC) Count 12.8 thou/uL (4.8-10.8)
[2021-03-30 07:08] LABS: Anion Gap 14 mmol/L (10-20); BUN (Urea Nitrogen) 14 mg/dL (8.4-25.7); Calc. Creatinine Clearance 136 mL/min (70-130); Calcium 9.1 mg/dL (7.8-10.44); Carbon Dioxide 25 mmol/L (23-31); Chloride 103 mmol/L (98-107); Glucose 123 mg/dL (83-110); Potassium 4.2 mmol/L (3.5-5.1); Sodium 138 mmol/L (136-145)
[2021-03-30] MEDS: Carvedilol 3.125 MG TAB PO SCH ×2 (08:26→17:23)
[2021-03-30] MEDS: Gabapentin 300 MG CAP PO SCH (08:26)
[2021-03-30] MEDS: Aspirin 81 mg Enteric Coated Tablet PO SCH (08:26)
[2021-03-30] MEDS: Docusate 100 MG CAP PO SCH ×2 (08:26→21:28)
[2021-03-30] MEDS: Enoxaparin Sodium 40 MG/0.4 ML SYRINGE SC SCH (08:26)
[2021-03-30] MEDS: Furosemide 20 MG TAB PO SCH (08:26)
[2021-03-30] MEDS: Potassium Chloride 10 MEQ TAB PO SCH (08:27)
[2021-03-30] MEDS: Sulfameth/Trimethoprim DS 800-160mg TAB PO SCH ×2 (08:27→21:29)
[2021-03-30] MEDS: HYDROcodone/Acetaminophen 10/325 mg Tablet PO PRN ×3 (08:40→21:29)
[2021-03-30] MEDS: Gabapentin 400 MG CAP PO SCH (21:25)
[2021-03-30] MEDS: Lantus 1000 UNITS/10 ML VIAL SC SCH (21:25)
[2021-03-30] MEDS: Lisinopril 10 MG TAB PO SCH (21:28)
[2021-03-30] MEDS: Alogliptin 25 MG TAB PO SCH (21:28)
[2021-03-30] MEDS: Atorvastatin Calcium 10 MG TAB PO SCH (21:28)
[2021-03-30] MEDS: Amitriptyline HCl 10 MG TAB PO SCH (21:29)
[2021-03-31 06:36] LABS: #Basophils 0.2 thou/uL (0.0-0.2); #Eosinphils 0.2 thou/uL (0.0-0.7); #Lymphocytes 3.3 thou/uL (1.20-3.40); #Monocytes 0.9 thou/uL (0.11-0.59); #Neutrophils 7.9 thou/uL (1.40-6.50); %Basophils 1.6 % (0.0-1.0); %Eosinophils 1.8 % (0.0-10.0); %Lymphocytes 26.2 % (21.0-51.0); %Monocytes 7.2 % (0.0-10.0); %Neutrophils 63.2 % (42.0-75.0); Hemoglobin 13.1 g/dL (14.0-18.0); Mean Corpuscular HGB CONC 32.4 g/dL (32.0-36.0); Mean Corpuscular Hemoglobin 29.2 pg (27.0-31.0); Mean Corpuscular Volume 90.3 fL (78.0-98.0); Mean Platelet Volume 7.6 fL (7.4-10.4); Platelet Count 425 thou/uL (130-400); RBC Distribution Width 13.6 % (11.5-14.5); Red Blood Cell (RBC) Count 4.48 mill/uL (4.70-6.10); White Blood Cell (WBC) Count 12.4 thou/uL (4.8-10.8)
[2021-03-31 06:50] LABS: Anion Gap 14 mmol/L (10-20); BUN (Urea Nitrogen) 16 mg/dL (8.4-25.7); Calc. Creatinine Clearance 136 mL/min (70-130); Carbon Dioxide 26 mmol/L (23-31); Chloride 101 mmol/L (98-107); Glucose 112 mg/dL (83-110); Potassium 4.1 mmol/L (3.5-5.1); Sodium 137 mmol/L (136-145)
[2021-03-31] MEDS: Gabapentin 300 MG CAP PO SCH (08:37)
[2021-03-31] MEDS: Enoxaparin Sodium 40 MG/0.4 ML SYRINGE SC SCH (08:37)
[2021-03-31] MEDS: HYDROcodone/Acetaminophen 10/325 mg Tablet PO PRN ×3 (08:39→21:57)
[2021-03-31] MEDS: Aspirin 81 mg Enteric Coated Tablet PO SCH (08:41)
[2021-03-31] MEDS: Furosemide 20 MG TAB PO SCH (08:41)
[2021-03-31] MEDS: Potassium Chloride 10 MEQ TAB PO SCH (08:41)
[2021-03-31] MEDS: Sulfameth/Trimethoprim DS 800-160mg TAB PO SCH ×2 (08:41→22:00)
[2021-03-31] MEDS: Docusate 100 MG CAP PO SCH ×2 (08:41→22:00)
[2021-03-31] MEDS: Carvedilol 3.125 MG TAB PO SCH ×2 (08:41→17:33)
[2021-03-31] MEDS: Lantus 1000 UNITS/10 ML VIAL SC SCH (21:57)
[2021-03-31] MEDS: Gabapentin 400 MG CAP PO SCH (21:59)
[2021-03-31] MEDS: Alogliptin 25 MG TAB PO SCH (22:00)
[2021-03-31] MEDS: Atorvastatin Calcium 10 MG TAB PO SCH (22:00)
[2021-03-31] MEDS: Amitriptyline HCl 10 MG TAB PO SCH (22:02)
[2021-03-31] MEDS: Lisinopril 10 MG TAB PO SCH (22:03)
[2021-04-01] MEDS: Carvedilol 3.125 MG TAB PO SCH ×2 (07:26→17:20)
[2021-04-01] MEDS: Gabapentin 300 MG CAP PO SCH (07:26)
[2021-04-01] MEDS: Aspirin 81 mg Enteric Coated Tablet PO SCH (07:27)
[2021-04-01] MEDS: Docusate 100 MG CAP PO SCH ×2 (07:27→20:11)
[2021-04-01] MEDS: Furosemide 20 MG TAB PO SCH (07:28)
[2021-04-01] MEDS: Potassium Chloride 10 MEQ TAB PO SCH (07:28)
[2021-04-01] MEDS: Enoxaparin Sodium 40 MG/0.4 ML SYRINGE SC SCH (07:28)
[2021-04-01] MEDS: Sulfameth/Trimethoprim DS 800-160mg TAB PO SCH (07:28)
[2021-04-01] MEDS: HYDROcodone/Acetaminophen 10/325 mg Tablet PO PRN ×3 (07:33→20:02)
[2021-04-01] MEDS: Atorvastatin Calcium 10 MG TAB PO SCH (20:10)
[2021-04-01] MEDS: Alogliptin 25 MG TAB PO SCH (20:10)
[2021-04-01] MEDS: Amitriptyline HCl 10 MG TAB PO SCH (20:10)
[2021-04-01] MEDS: Gabapentin 400 MG CAP PO SCH (20:10)
[2021-04-01] MEDS: Lisinopril 10 MG TAB PO SCH (20:11)
[2021-04-01] MEDS: Lantus 1000 UNITS/10 ML VIAL SC SCH (22:03)
[2021-04-01] MEDS: Calcium Carbonate 500 MG ChewTAB PO PRN (22:03)
[2021-04-02 07:48] LABS: #Basophils 0.1 thou/uL (0.0-0.2); #Eosinphils 0.1 thou/uL (0.0-0.7); #Lymphocytes 2.7 thou/uL (1.20-3.40); #Monocytes 0.9 thou/uL (0.11-0.59); #Neutrophils 9.4 thou/uL (1.40-6.50); %Basophils 0.9 % (0.0-1.0); %Eosinophils 0.6 % (0.0-10.0); %Lymphocytes 20.3 % (21.0-51.0); %Monocytes 7.1 % (0.0-10.0); %Neutrophils 71.1 % (42.0-75.0); Hemoglobin 13.2 g/dL (14.0-18.0); Mean Corpuscular HGB CONC 32.2 g/dL (32.0-36.0); Mean Corpuscular Hemoglobin 29.1 pg (27.0-31.0); Mean Corpuscular Volume 90.4 fL (78.0-98.0); Mean Platelet Volume 9.3 fL (7.4-10.4); Platelet Count 294 thou/uL (130-400); RBC Distribution Width 13.6 % (11.5-14.5); Red Blood Cell (RBC) Count 4.55 mill/uL (4.70-6.10); White Blood Cell (WBC) Count 13.2 thou/uL (4.8-10.8)
[2021-04-02] MEDS: HYDROcodone/Acetaminophen 10/325 mg Tablet PO PRN ×3 (08:50→22:34)
[2021-04-02] MEDS: Aspirin 81 mg Enteric Coated Tablet PO SCH (08:50)
[2021-04-02] MEDS: Docusate 100 MG CAP PO SCH ×2 (08:50→20:58)
[2021-04-02] MEDS: Gabapentin 300 MG CAP PO SCH (08:50)
[2021-04-02] MEDS: Enoxaparin Sodium 40 MG/0.4 ML SYRINGE SC SCH (08:51)
[2021-04-02] MEDS: Furosemide 20 MG TAB PO SCH (08:51)
[2021-04-02] MEDS: Carvedilol 3.125 MG TAB PO SCH ×2 (08:51→17:53)
[2021-04-02] MEDS: Potassium Chloride 10 MEQ TAB PO SCH (08:51)
[2021-04-02] MEDS: Amitriptyline HCl 10 MG TAB PO SCH (20:56)
[2021-04-02] MEDS: Gabapentin 400 MG CAP PO SCH (20:56)
[2021-04-02] MEDS: Atorvastatin Calcium 10 MG TAB PO SCH (20:58)
[2021-04-02] MEDS: Alogliptin 25 MG TAB PO SCH (20:58)
[2021-04-02] MEDS: Lisinopril 10 MG TAB PO SCH (20:58)
[2021-04-02] MEDS: Lantus 1000 UNITS/10 ML VIAL SC SCH (21:04)
[2021-04-03] MEDS: HumaLOG 300 UNITS/3 ML VIAL SC PRN ×2 (06:14→12:28)
[2021-04-03] MEDS: Enoxaparin Sodium 40 MG/0.4 ML SYRINGE SC SCH (08:38)
[2021-04-03] MEDS: Gabapentin 300 MG CAP PO SCH (08:39)
[2021-04-03] MEDS: Docusate 100 MG CAP PO SCH ×2 (08:40→20:58)
[2021-04-03] MEDS: Potassium Chloride 10 MEQ TAB PO SCH (08:40)
[2021-04-03] MEDS: Aspirin 81 mg Enteric Coated Tablet PO SCH (08:40)
[2021-04-03] MEDS: Carvedilol 3.125 MG TAB PO SCH ×2 (08:41→18:19)
[2021-04-03] MEDS: Furosemide 20 MG TAB PO SCH (08:41)
[2021-04-03] MEDS: HYDROcodone/Acetaminophen 10/325 mg Tablet PO PRN ×2 (08:56→21:10)
[2021-04-03] MEDS: Amitriptyline HCl 10 MG TAB PO SCH (20:56)
[2021-04-03] MEDS: Gabapentin 400 MG CAP PO SCH (20:58)
[2021-04-03] MEDS: Lisinopril 10 MG TAB PO SCH (20:58)
[2021-04-03] MEDS: Alogliptin 25 MG TAB PO SCH (20:58)
[2021-04-03] MEDS: Atorvastatin Calcium 10 MG TAB PO SCH (20:59)
[2021-04-03] MEDS: Lantus 1000 UNITS/10 ML VIAL SC SCH (21:13)
[2021-04-03 23:02] LABS: SARS-CoV-2 PCR by NAA Not Detected (NotDetected)
[2021-04-04 06:26] LABS: #Basophils 0.1 thou/uL (0.0-0.2); #Eosinphils 0.1 thou/uL (0.0-0.7); #Lymphocytes 2.5 thou/uL (1.20-3.40); #Monocytes 1.2 thou/uL (0.11-0.59); #Neutrophils 7.1 thou/uL (1.40-6.50); %Basophils 0.9 % (0.0-1.0); %Eosinophils 0.9 % (0.0-10.0); %Monocytes 10.8 % (0.0-10.0); %Neutrophils 64.4 % (42.0-75.0); Hemoglobin 12.2 g/dL (14.0-18.0); Mean Corpuscular HGB CONC 31.3 g/dL (32.0-36.0); Mean Corpuscular Hemoglobin 28.6 pg (27.0-31.0); Mean Corpuscular Volume 91.5 fL (78.0-98.0); Mean Platelet Volume 7.5 fL (7.4-10.4); Platelet Count 320 thou/uL (130-400); RBC Distribution Width 13.8 % (11.5-14.5); Red Blood Cell (RBC) Count 4.26 mill/uL (4.70-6.10); White Blood Cell (WBC) Count 11.1 thou/uL (4.8-10.8)
[2021-04-04] MEDS: HYDROcodone/Acetaminophen 10/325 mg Tablet PO PRN ×3 (08:24→20:38)
[2021-04-04] MEDS: Gabapentin 300 MG CAP PO SCH (08:26)
[2021-04-04] MEDS: Docusate 100 MG CAP PO SCH ×2 (08:26→20:36)
[2021-04-04] MEDS: Enoxaparin Sodium 40 MG/0.4 ML SYRINGE SC SCH (08:26)
[2021-04-04] MEDS: Potassium Chloride 10 MEQ TAB PO SCH (08:27)
[2021-04-04] MEDS: Aspirin 81 mg Enteric Coated Tablet PO SCH (08:28)
[2021-04-04] MEDS: Furosemide 20 MG TAB PO SCH (08:28)
[2021-04-04] MEDS: Carvedilol 3.125 MG TAB PO SCH ×2 (08:28→17:31)
[2021-04-04] MEDS: Atorvastatin Calcium 10 MG TAB PO SCH (20:36)
[2021-04-04] MEDS: Amitriptyline HCl 10 MG TAB PO SCH (20:37)
[2021-04-04] MEDS: Gabapentin 400 MG CAP PO SCH (20:37)
[2021-04-04] MEDS: Lisinopril 10 MG TAB PO SCH (20:37)
[2021-04-04] MEDS: Alogliptin 25 MG TAB PO SCH (20:37)
[2021-04-04] MEDS: Lantus 1000 UNITS/10 ML VIAL SC SCH (20:42)
[2021-04-05] MEDS: Gabapentin 300 MG CAP PO SCH (08:16)
[2021-04-05] MEDS: Carvedilol 3.125 MG TAB PO SCH ×2 (08:16→16:22)
[2021-04-05] MEDS: Aspirin 81 mg Enteric Coated Tablet PO SCH (08:16)
[2021-04-05] MEDS: Furosemide 20 MG TAB PO SCH (08:16)
[2021-04-05] MEDS: Potassium Chloride 10 MEQ TAB PO SCH (08:16)
[2021-04-05] MEDS: Enoxaparin Sodium 40 MG/0.4 ML SYRINGE SC SCH (08:17)
[2021-04-05] MEDS: HYDROcodone/Acetaminophen 10/325 mg Tablet PO PRN ×2 (08:37→18:33)
[2021-04-05] MEDS: Docusate 100 MG CAP PO SCH ×2 (08:39→20:48)
[2021-04-05] MEDS: Atorvastatin Calcium 10 MG TAB PO SCH (20:49)
[2021-04-05] MEDS: Alogliptin 25 MG TAB PO SCH (20:49)
[2021-04-05] MEDS: Gabapentin 400 MG CAP PO SCH (20:49)
[2021-04-05] MEDS: Lisinopril 10 MG TAB PO SCH (20:49)
[2021-04-05] MEDS: Lantus 1000 UNITS/10 ML VIAL SC SCH (20:51)
[2021-04-05] MEDS: Amitriptyline HCl 10 MG TAB PO SCH (20:51)
[2021-04-06] MEDS: HYDROcodone/Acetaminophen 10/325 mg Tablet PO PRN ×4 (00:34→20:40)
[2021-04-06] MEDS: Enoxaparin Sodium 40 MG/0.4 ML SYRINGE SC SCH (08:16)
[2021-04-06] MEDS: Aspirin 81 mg Enteric Coated Tablet PO SCH (08:17)
[2021-04-06] MEDS: Docusate 100 MG CAP PO SCH ×2 (08:17→20:34)
[2021-04-06] MEDS: Potassium Chloride 10 MEQ TAB PO SCH (08:17)
[2021-04-06] MEDS: Furosemide 20 MG TAB PO SCH (08:18)
[2021-04-06] MEDS: Carvedilol 3.125 MG TAB PO SCH ×2 (08:18→17:31)
[2021-04-06] MEDS: Gabapentin 300 MG CAP PO SCH (08:18)
[2021-04-06] MEDS: HumaLOG 300 UNITS/3 ML VIAL SC PRN (17:31)
[2021-04-06] MEDS: Atorvastatin Calcium 10 MG TAB PO SCH (20:34)
[2021-04-06] MEDS: Amitriptyline HCl 10 MG TAB PO SCH (20:34)
[2021-04-06] MEDS: Alogliptin 25 MG TAB PO SCH (20:34)
[2021-04-06] MEDS: Lisinopril 10 MG TAB PO SCH (20:34)
[2021-04-06] MEDS: Gabapentin 400 MG CAP PO SCH (20:37)
[2021-04-06] MEDS: Lantus 1000 UNITS/10 ML VIAL SC SCH (20:47)
[2021-04-07] MEDS: HumaLOG 300 UNITS/3 ML VIAL SC PRN ×2 (05:30→17:14)
[2021-04-07] MEDS: Gabapentin 300 MG CAP PO SCH (08:22)
[2021-04-07] MEDS: Furosemide 20 MG TAB PO SCH (08:22)
[2021-04-07] MEDS: Carvedilol 3.125 MG TAB PO SCH ×2 (08:22→17:14)
[2021-04-07] MEDS: Potassium Chloride 10 MEQ TAB PO SCH (08:22)
[2021-04-07] MEDS: Aspirin 81 mg Enteric Coated Tablet PO SCH (08:22)
[2021-04-07] MEDS: Docusate 100 MG CAP PO SCH ×2 (08:22→20:46)
[2021-04-07] MEDS: Enoxaparin Sodium 40 MG/0.4 ML SYRINGE SC SCH (08:23)
[2021-04-07] MEDS: HYDROcodone/Acetaminophen 10/325 mg Tablet PO PRN ×3 (08:30→20:47)
[2021-04-07] MEDS: Lisinopril 10 MG TAB PO SCH (20:46)
[2021-04-07] MEDS: Amitriptyline HCl 10 MG TAB PO SCH (20:46)
[2021-04-07] MEDS: Alogliptin 25 MG TAB PO SCH (20:46)
[2021-04-07] MEDS: Gabapentin 400 MG CAP PO SCH (20:46)
[2021-04-07] MEDS: Atorvastatin Calcium 10 MG TAB PO SCH (20:46)
[2021-04-07] MEDS: Lantus 1000 UNITS/10 ML VIAL SC SCH (20:50)
[2021-04-08] MEDS: Furosemide 20 MG TAB PO SCH (08:17)
[2021-04-08] MEDS: Enoxaparin Sodium 40 MG/0.4 ML SYRINGE SC SCH (08:17)
[2021-04-08] MEDS: Docusate 100 MG CAP PO SCH ×2 (08:17→21:18)
[2021-04-08] MEDS: Gabapentin 300 MG CAP PO SCH (08:17)
[2021-04-08] MEDS: Carvedilol 3.125 MG TAB PO SCH ×2 (08:19→17:16)
[2021-04-08] MEDS: Aspirin 81 mg Enteric Coated Tablet PO SCH (08:19)
[2021-04-08] MEDS: Potassium Chloride 10 MEQ TAB PO SCH (08:19)
[2021-04-08] MEDS: HYDROcodone/Acetaminophen 10/325 mg Tablet PO PRN ×2 (08:26→17:15)
[2021-04-08] MEDS ORDERED: Ibuprofen 400 MG TAB PO PRN (14:31)
[2021-04-08] MEDS: Alogliptin 25 MG TAB PO SCH (21:18)
[2021-04-08] MEDS: Atorvastatin Calcium 10 MG TAB PO SCH (21:18)
[2021-04-08] MEDS: Gabapentin 400 MG CAP PO SCH (21:18)
[2021-04-08] MEDS: Amitriptyline HCl 10 MG TAB PO SCH (21:20)
[2021-04-08] MEDS: Lisinopril 10 MG TAB PO SCH (21:21)
[2021-04-08] MEDS: Lantus 1000 UNITS/10 ML VIAL SC SCH (21:22)
[2021-04-09 06:56] LABS: ALT (SGPT) 17 U/L (8-55); AST (SGOT) 10 U/L (5-34); Albumin 3.6 g/dL (3.4-4.8); Alkaline Phosphatase 44 U/L (40-110); Anion Gap 13 mmol/L (10-20); BUN (Urea Nitrogen) 16 mg/dL (8.4-25.7); Bilirubin, Total 0.7 mg/dL (0.2-1.2); Calc. Creatinine Clearance 154 mL/min (70-130); Calcium 8.8 mg/dL (7.8-10.44); Carbon Dioxide 27 mmol/L (23-31); Chloride 103 mmol/L (98-107); Globulin 3.4 g/dL (2.4-3.5); Glucose 116 mg/dL (83-110); Potassium 3.7 mmol/L (3.5-5.1); Sodium 139 mmol/L (136-145)
[2021-04-09] MEDS ORDERED: Ibuprofen 400 MG TAB PO PRN (07:02)
[2021-04-09] MEDS ORDERED: Acetaminophen 500 MG TAB PO PRN ×2 (07:03→07:05)
[2021-04-09 07:06] LABS: #Basophils 0.2 thou/uL (0.0-0.2); #Eosinphils 0.1 thou/uL (0.0-0.7); #Lymphocytes 3.5 thou/uL (1.20-3.40); #Monocytes 0.9 thou/uL (0.11-0.59); #Neutrophils 8.6 thou/uL (1.40-6.50); %Basophils 1.2 % (0.0-1.0); %Eosinophils 1.1 % (0.0-10.0); %Lymphocytes 26.4 % (21.0-51.0); %Monocytes 6.5 % (0.0-10.0); %Neutrophils 64.9 % (42.0-75.0); Hemoglobin 12.3 g/dL (14.0-18.0); Mean Corpuscular HGB CONC 32.9 g/dL (32.0-36.0); Mean Corpuscular Hemoglobin 29.6 pg (27.0-31.0); Mean Corpuscular Volume 90.1 fL (78.0-98.0); Platelet Count 326 thou/uL (130-400); RBC Distribution Width 13.6 % (11.5-14.5); Red Blood Cell (RBC) Count 4.15 mill/uL (4.70-6.10); White Blood Cell (WBC) Count 13.3 thou/uL (4.8-10.8)
[2021-04-09] MEDS: Carvedilol 3.125 MG TAB PO SCH ×2 (07:56→17:48)
[2021-04-09] MEDS ORDERED: Ibuprofen 200 MG TAB ONE (08:22)
[2021-04-09] MEDS: Potassium Chloride 10 MEQ TAB PO SCH (08:27)
[2021-04-09] MEDS: HYDROcodone/Acetaminophen 10/325 mg Tablet PO PRN ×3 (08:27→21:43)
[2021-04-09] MEDS: Docusate 100 MG CAP PO SCH ×2 (08:29→20:37)
[2021-04-09] MEDS: Aspirin 81 mg Enteric Coated Tablet PO SCH (08:29)
[2021-04-09] MEDS: Gabapentin 300 MG CAP PO SCH (08:30)
[2021-04-09] MEDS: Furosemide 20 MG TAB PO SCH (08:30)
[2021-04-09] MEDS: Enoxaparin Sodium 40 MG/0.4 ML SYRINGE SC SCH (08:30)
[2021-04-09] MEDS: Alogliptin 25 MG TAB PO SCH (20:37)
[2021-04-09] MEDS: Lisinopril 10 MG TAB PO SCH (20:38)
[2021-04-09] MEDS: Atorvastatin Calcium 10 MG TAB PO SCH (20:38)
[2021-04-09] MEDS: Gabapentin 400 MG CAP PO SCH (20:38)
[2021-04-09] MEDS: Lantus 1000 UNITS/10 ML VIAL SC SCH (20:45)
[2021-04-10] MEDS: Docusate 100 MG CAP PO SCH ×2 (07:43→21:27)
[2021-04-10] MEDS: Gabapentin 300 MG CAP PO SCH (07:43)
[2021-04-10] MEDS: Aspirin 81 mg Enteric Coated Tablet PO SCH (07:43)
[2021-04-10] MEDS: Furosemide 20 MG TAB PO SCH (07:44)
[2021-04-10] MEDS: Ibuprofen 200 MG TAB PO PRN (07:45)
[2021-04-10] MEDS: HYDROcodone/Acetaminophen 10/325 mg Tablet PO PRN ×3 (07:45→21:28)
[2021-04-10] MEDS: Enoxaparin Sodium 40 MG/0.4 ML SYRINGE SC SCH (07:46)
[2021-04-10] MEDS: Carvedilol 3.125 MG TAB PO SCH ×2 (07:46→17:30)
[2021-04-10] MEDS: Potassium Chloride 10 MEQ TAB PO SCH (07:46)
[2021-04-10] MEDS: Lantus 1000 UNITS/10 ML VIAL SC SCH (21:26)
[2021-04-10] MEDS: Gabapentin 400 MG CAP PO SCH (21:27)
[2021-04-10] MEDS: Atorvastatin Calcium 10 MG TAB PO SCH (21:29)
[2021-04-10] MEDS: Alogliptin 25 MG TAB PO SCH (21:29)
[2021-04-10] MEDS: Lisinopril 10 MG TAB PO SCH (21:29)
[2021-04-10 22:14] LABS: SARS-CoV-2 PCR by NAA Not Detected (NotDetected)
[2021-04-11] MEDS: Carvedilol 3.125 MG TAB PO SCH ×2 (07:56→17:47)
[2021-04-11] MEDS: HYDROcodone/Acetaminophen 10/325 mg Tablet PO PRN ×3 (07:57→21:18)
[2021-04-11] MEDS: Gabapentin 300 MG CAP PO SCH (07:59)
[2021-04-11] MEDS: Enoxaparin Sodium 40 MG/0.4 ML SYRINGE SC SCH (08:00)
[2021-04-11] MEDS: Furosemide 20 MG TAB PO SCH (08:01)
[2021-04-11] MEDS: Potassium Chloride 10 MEQ TAB PO SCH (08:01)
[2021-04-11] MEDS: Aspirin 81 mg Enteric Coated Tablet PO SCH (08:01)
[2021-04-11] MEDS: Docusate 100 MG CAP PO SCH ×2 (08:02→21:18)
[2021-04-11] MEDS: HumaLOG 300 UNITS/3 ML VIAL SC PRN (17:48)
[2021-04-11] MEDS: Lantus 1000 UNITS/10 ML VIAL SC SCH (21:14)
[2021-04-11] MEDS: Gabapentin 400 MG CAP PO SCH (21:16)
[2021-04-11] MEDS: Alogliptin 25 MG TAB PO SCH (21:17)
[2021-04-11] MEDS: Atorvastatin Calcium 10 MG TAB PO SCH (21:17)
[2021-04-11] MEDS: Lisinopril 10 MG TAB PO SCH (21:18)
[2021-04-12 06:31] LABS: #Basophils 0.1 thou/uL (0.0-0.2); #Eosinphils 0.1 thou/uL (0.0-0.7); #Lymphocytes 3.6 thou/uL (1.20-3.40); #Monocytes 0.9 thou/uL (0.11-0.59); #Neutrophils 8.6 thou/uL (1.40-6.50); %Eosinophils 1.1 % (0.0-10.0); %Monocytes 6.4 % (0.0-10.0); %Neutrophils 64.4 % (42.0-75.0); Hemoglobin 12.8 g/dL (14.0-18.0); Mean Corpuscular Hemoglobin 29.9 pg (27.0-31.0); Mean Corpuscular Volume 90.7 fL (78.0-98.0); Mean Platelet Volume 6.9 fL (7.4-10.4); Platelet Count 330 thou/uL (130-400); Red Blood Cell (RBC) Count 4.28 mill/uL (4.70-6.10); White Blood Cell (WBC) Count 13.3 thou/uL (4.8-10.8)
[2021-04-12 06:40] LABS: Anion Gap 14 mmol/L (10-20); BUN (Urea Nitrogen) 16 mg/dL (8.4-25.7); Calc. Creatinine Clearance 156 mL/min (70-130); Calcium 8.8 mg/dL (7.8-10.44); Carbon Dioxide 25 mmol/L (23-31); Chloride 106 mmol/L (98-107); Glucose 114 mg/dL (83-110); Potassium 3.8 mmol/L (3.5-5.1); Sodium 141 mmol/L (136-145)
[2021-04-12] MEDS: Gabapentin 300 MG CAP PO SCH (08:30)
[2021-04-12] MEDS: Enoxaparin Sodium 40 MG/0.4 ML SYRINGE SC SCH (08:30)
[2021-04-12] MEDS: Aspirin 81 mg Enteric Coated Tablet PO SCH (08:31)
[2021-04-12] MEDS: Docusate 100 MG CAP PO SCH ×2 (08:32→21:16)
[2021-04-12] MEDS: Potassium Chloride 10 MEQ TAB PO SCH (08:32)
[2021-04-12] MEDS: Furosemide 20 MG TAB PO SCH (08:32)
[2021-04-12] MEDS: Carvedilol 3.125 MG TAB PO SCH ×2 (08:32→16:24)
[2021-04-12] MEDS: HYDROcodone/Acetaminophen 10/325 mg Tablet PO PRN ×3 (08:37→21:18)
[2021-04-12] MEDS: Alogliptin 25 MG TAB PO SCH (21:16)
[2021-04-12] MEDS: Atorvastatin Calcium 10 MG TAB PO SCH (21:16)
[2021-04-12] MEDS: Lisinopril 10 MG TAB PO SCH (21:16)
[2021-04-12] MEDS: Lantus 1000 UNITS/10 ML VIAL SC SCH (21:16)
[2021-04-12] MEDS: Gabapentin 400 MG CAP PO SCH (21:17)
[2021-04-13] MEDS: Gabapentin 300 MG CAP PO SCH (07:59)
[2021-04-13] MEDS: Potassium Chloride 10 MEQ TAB PO SCH (08:00)
[2021-04-13] MEDS: Aspirin 81 mg Enteric Coated Tablet PO SCH (08:00)
[2021-04-13] MEDS: Docusate 100 MG CAP PO SCH ×2 (08:00→20:20)
[2021-04-13] MEDS: HYDROcodone/Acetaminophen 10/325 mg Tablet PO PRN ×2 (08:01→20:18)
[2021-04-13] MEDS: Furosemide 20 MG TAB PO SCH (08:01)
[2021-04-13] MEDS: Carvedilol 3.125 MG TAB PO SCH ×2 (08:01→17:12)
[2021-04-13] MEDS: Enoxaparin Sodium 40 MG/0.4 ML SYRINGE SC SCH (08:02)
[2021-04-13] MEDS: Gabapentin 400 MG CAP PO SCH (20:19)
[2021-04-13] MEDS: Alogliptin 25 MG TAB PO SCH (20:20)
[2021-04-13] MEDS: Atorvastatin Calcium 10 MG TAB PO SCH (20:20)
[2021-04-13] MEDS: Lisinopril 10 MG TAB PO SCH (20:20)
[2021-04-13] MEDS: Lantus 1000 UNITS/10 ML VIAL SC SCH (20:21)
[2021-04-14] MEDS: Enoxaparin Sodium 40 MG/0.4 ML SYRINGE SC SCH (07:30)
[2021-04-14] MEDS: HYDROcodone/Acetaminophen 10/325 mg Tablet PO PRN ×3 (07:31→21:37)
[2021-04-14] MEDS: Gabapentin 300 MG CAP PO SCH (07:32)
[2021-04-14] MEDS: Furosemide 20 MG TAB PO SCH (07:32)
[2021-04-14] MEDS: Docusate 100 MG CAP PO SCH ×2 (07:32→21:36)
[2021-04-14] MEDS: Carvedilol 3.125 MG TAB PO SCH ×2 (07:32→17:16)
[2021-04-14] MEDS: Potassium Chloride 10 MEQ TAB PO SCH (07:32)
[2021-04-14] MEDS: Aspirin 81 mg Enteric Coated Tablet PO SCH (07:34)
[2021-04-14] MEDS: Gabapentin 400 MG CAP PO SCH (21:36)
[2021-04-14] MEDS: Alogliptin 25 MG TAB PO SCH (21:38)
[2021-04-14] MEDS: Lisinopril 10 MG TAB PO SCH (21:38)
[2021-04-14] MEDS: Atorvastatin Calcium 10 MG TAB PO SCH (21:39)
[2021-04-14] MEDS: Lantus 1000 UNITS/10 ML VIAL SC SCH (21:39)
[2021-04-15 06:57] LABS: #Basophils 0.1 thou/uL (0.0-0.2); #Eosinphils 0.1 thou/uL (0.0-0.7); #Lymphocytes 3.4 thou/uL (1.20-3.40); #Monocytes 0.8 thou/uL (0.11-0.59); %Basophils 0.6 % (0.0-1.0); %Eosinophils 1.1 % (0.0-10.0); %Lymphocytes 27.7 % (21.0-51.0); %Monocytes 6.2 % (0.0-10.0); %Neutrophils 64.4 % (42.0-75.0); Hemoglobin 11.9 g/dL (14.0-18.0); Mean Corpuscular HGB CONC 32.5 g/dL (32.0-36.0); Mean Corpuscular Hemoglobin 29.6 pg (27.0-31.0); Mean Corpuscular Volume 91.2 fL (78.0-98.0); Mean Platelet Volume 6.9 fL (7.4-10.4); Platelet Count 299 thou/uL (130-400); RBC Distribution Width 13.8 % (11.5-14.5); Red Blood Cell (RBC) Count 4.02 mill/uL (4.70-6.10); White Blood Cell (WBC) Count 12.4 thou/uL (4.8-10.8)
[2021-04-15 07:02] LABS: Anion Gap 12 mmol/L (10-20); BUN (Urea Nitrogen) 15 mg/dL (8.4-25.7); Calc. Creatinine Clearance 154 mL/min (70-130); Calcium 8.9 mg/dL (7.8-10.44); Carbon Dioxide 28 mmol/L (23-31); Chloride 104 mmol/L (98-107); Glucose 107 mg/dL (83-110); Potassium 3.8 mmol/L (3.5-5.1); Sodium 140 mmol/L (136-145)
[2021-04-15] MEDS: Gabapentin 300 MG CAP PO SCH (08:06)
[2021-04-15] MEDS: Furosemide 20 MG TAB PO SCH (08:08)
[2021-04-15] MEDS: Carvedilol 3.125 MG TAB PO SCH ×2 (08:09→16:18)
[2021-04-15] MEDS: Docusate 100 MG CAP PO SCH ×2 (08:11→20:38)
[2021-04-15] MEDS: Potassium Chloride 10 MEQ TAB PO SCH (08:11)
[2021-04-15] MEDS: Aspirin 81 mg Enteric Coated Tablet PO SCH (08:11)
[2021-04-15] MEDS: Enoxaparin Sodium 40 MG/0.4 ML SYRINGE SC SCH (08:12)
[2021-04-15] MEDS: HYDROcodone/Acetaminophen 10/325 mg Tablet PO PRN ×3 (08:35→20:46)
[2021-04-15 10:33] VITALS: BMI 36.6
[2021-04-15] MEDS: Gabapentin 400 MG CAP PO SCH (20:28)
[2021-04-15] MEDS: Lisinopril 10 MG TAB PO SCH (20:38)
[2021-04-15] MEDS: Lantus 1000 UNITS/10 ML VIAL SC SCH (20:38)
[2021-04-15] MEDS: Alogliptin 25 MG TAB PO SCH (20:38)
[2021-04-15] MEDS: Atorvastatin Calcium 10 MG TAB PO SCH (20:38)
[2021-04-16] MEDS: Ibuprofen 200 MG TAB PO PRN ×2 (07:45→21:07)
[2021-04-16] MEDS: HYDROcodone/Acetaminophen 10/325 mg Tablet PO PRN ×3 (07:46→21:10)
[2021-04-16] MEDS: Potassium Chloride 10 MEQ TAB PO SCH (07:47)
[2021-04-16] MEDS: Enoxaparin Sodium 40 MG/0.4 ML SYRINGE SC SCH (07:47)
[2021-04-16] MEDS: Furosemide 20 MG TAB PO SCH (07:47)
[2021-04-16] MEDS: Gabapentin 300 MG CAP PO SCH (07:47)
[2021-04-16] MEDS: Docusate 100 MG CAP PO SCH ×2 (07:48→21:06)
[2021-04-16] MEDS: Aspirin 81 mg Enteric Coated Tablet PO SCH (07:48)
[2021-04-16] MEDS: Carvedilol 3.125 MG TAB PO SCH ×2 (07:48→17:19)
[2021-04-16] MEDS: Alogliptin 25 MG TAB PO SCH (21:06)
[2021-04-16] MEDS: Atorvastatin Calcium 10 MG TAB PO SCH (21:06)
[2021-04-16] MEDS: Lisinopril 10 MG TAB PO SCH (21:11)
[2021-04-16] MEDS: Gabapentin 400 MG CAP PO SCH (21:12)
[2021-04-16] MEDS: Lantus 1000 UNITS/10 ML VIAL SC SCH (21:12)
[2021-04-17] MEDS: HYDROcodone/Acetaminophen 10/325 mg Tablet PO PRN ×3 (08:52→22:48)
[2021-04-17] MEDS: Enoxaparin Sodium 40 MG/0.4 ML SYRINGE SC SCH (08:54)
[2021-04-17] MEDS: Gabapentin 300 MG CAP PO SCH (08:54)
[2021-04-17] MEDS: Furosemide 20 MG TAB PO SCH (08:55)
[2021-04-17] MEDS: Carvedilol 3.125 MG TAB PO SCH ×2 (08:55→16:56)
[2021-04-17] MEDS: Aspirin 81 mg Enteric Coated Tablet PO SCH (08:55)
[2021-04-17] MEDS: Docusate 100 MG CAP PO SCH ×2 (08:55→20:34)
[2021-04-17] MEDS: Potassium Chloride 10 MEQ TAB PO SCH (08:55)
[2021-04-17 14:37] LABS: SARS-CoV-2 PCR by NAA Not Detected (NotDetected)
[2021-04-17] MEDS: Lantus 1000 UNITS/10 ML VIAL SC SCH (20:33)
[2021-04-17] MEDS: Gabapentin 400 MG CAP PO SCH (20:33)
[2021-04-17] MEDS: Alogliptin 25 MG TAB PO SCH (20:34)
[2021-04-17] MEDS: Atorvastatin Calcium 10 MG TAB PO SCH (20:34)
[2021-04-17] MEDS: Lisinopril 10 MG TAB PO SCH (20:34)
[2021-04-18] MEDS: HYDROcodone/Acetaminophen 10/325 mg Tablet PO PRN (08:53)
[2021-04-18] MEDS: Docusate 100 MG CAP PO SCH (09:00)
[2021-04-18] MEDS: Gabapentin 300 MG CAP PO SCH (09:00)
[2021-04-18] MEDS: Carvedilol 3.125 MG TAB PO SCH (09:00)
[2021-04-18] MEDS: Furosemide 20 MG TAB PO SCH (09:00)
[2021-04-18] MEDS: Potassium Chloride 10 MEQ TAB PO SCH (09:01)
[2021-04-18] MEDS: Enoxaparin Sodium 40 MG/0.4 ML SYRINGE SC SCH (09:02)
[2021-04-18] MEDS: Aspirin 81 mg Enteric Coated Tablet PO SCH (09:12)
[2021-04-18 09:24] VITALS: BP 118/62; TEMP 97.8
== END 2021-04-18 15:50 | disposition home or self-care (01) | DRG 948 ==
LOC: NAV ACUTE 21:23
PROVIDERS: ADMIT Family Medicine; ATTEND Family Medicine
DX: R53.81 Other malaise (principal); F32.1 Major depressive disorder, single episode, moderate; I10 Essential (primary) hypertension; E78.5 Hyperlipidemia, unspecified; M19.90 Unspecified osteoarthritis, unspecified site; E11.42 Type 2 diabetes mellitus with diabetic polyneuropathy; E11.69 Type 2 diabetes mellitus with other specified complication; E66.9 Obesity, unspecified; R00.1 Bradycardia, unspecified; Z20.822 Contact with and (suspected) exposure to COVID-19; G47.33 Obstructive sleep apnea (adult) (pediatric); Z90.49 Acquired absence of other specified parts of digestive tract; Z91.81 History of falling; Z09 Encounter for follow-up examination after completed treatment for conditions other than malignant neoplasm; Z89.422 Acquired absence of other left toe(s); Z89.421 Acquired absence of other right toe(s); Z89.412 Acquired absence of left great toe; Z89.411 Acquired absence of right great toe; Z79.82 Long term (current) use of aspirin; Z79.4 Long term (current) use of insulin; Z79.899 Other long term (current) drug therapy; Z79.2 Long term (current) use of antibiotics; Z68.36 Body mass index [BMI] 36.0-36.9, adult
CPT/HCPCS: 36416; 80048; 80053; 85025; 85652; 86140; 90471; 90732; 97602; 36415-59; G0009; J1650; J1815; U0003; U0005